=== PATIENT | female | born 1955 | race Hispanic/Latino ===

== ENCOUNTER 2021-04-26 06:13 | Emergency (ER) | payer MEDICARE ==
[~2021-04-26] VITALS: Ht 152.4 cm; Wt 142.4 kg
== END 2021-04-26 08:25 | disposition home or self-care (01) ==
LOC: ER 06:29
DX: M79.605 Pain in left leg (principal); M79.18 Myalgia, other site; M17.0 Bilateral primary osteoarthritis of knee; G47.33 Obstructive sleep apnea (adult) (pediatric)
CPT/HCPCS: 99283